=== PATIENT | male | born 2000 | race Caucasian/White ===

== ENCOUNTER 2020-08-12 14:46 | Observation (INO) ==
[~2020-08-12 14:46] MED LIST: oxyCODONE HCL IR 5 MG TAB (IMMEDIATE RELEASE) PO SCH
[2020-08-12] MEDS ORDERED: SODIUM CHLORIDE 0.9% 1000ML 1,000 ML IV ONE (15:50)
[2020-08-12 16:06] LABS: Appearance Urine Clear (Clear); Bacteria Urine Automated Negative (Negative); Bilirubin Urine Negative (Negative); Blood Urine Negative (Negative); Color Urine Dark Yellow; Epithelial Cell Urine Auto 20-30 /lpf (0-5); Glucose Urine UA Negative (Negative); Ketones Urine Trace (Negative); Leukocyte Esterase Urine Trace (Negative); Nitrite Urine Negative (Negative); Protein Urine 1+ (Negative); RBC Urine Automated 0-4 /hpf (0-4); Specific Gravity Urine 1.037 (1.000-1.030); Urobilinogen Urine Negative (Negative)
[2020-08-12 16:07] LABS: Basophils # (auto) 0.02 K/uL (0-0.2); Basophils % (auto) 0.1 %; Eosinophils # (auto) 0.08 K/uL (0-0.5); Eosinophils % (auto) 0.6 %; Hematocrit (blood only) 42.8 % (42-52); Immature Granulocytes # (auto) 0.03 K/uL (0.00-0.02); Immature Granulocytes % (auto) 0.2 %; Lymphocytes # (auto) 2.13 K/uL (1.2-3.4); Lymphocytes % (auto) 15.2 %; Mean Corpuscular Hemoglobin 31.7 pg (25-34); Mean Corpuscular Volume 90.5 fL (80-100); Monocytes % (auto) 7.8 %; Neutrophils # (auto) 10.67 K/uL (1.4-6.5); Neutrophils % (auto) 76.1 %; Platelet Count 305 K/uL (130-400); RDW Coefficient of Variation 12.3 % (11.5-14.5); Red Blood Count 4.73 M/uL (4.7-6.1); White Blood Count 14.03 K/uL (4.8-10.8)
--- NOTE | 2020-08-12 16:20 | Emergency Department Note ---
History of Present Illness General Chief complaint: Abdominal Pain Stated complaint: PAIN IN UPPER CENTER STOMACH Time Seen by Provider: 08/12/20 15:03 History of Present Illness Maximum Pain Intensity: 2 20-year-old male who presents to the emergency department for evaluation of epigastric pain since last evening. The patient reports that he did try to take some anti-gas medication before going to bed, which did not help with his discomfort that he describes as a "squeezing and bruised sensation". The patient did not notice any pain radiating into the chest or back. The pain is worsened when laying on his stomach. The patient reports that he has also noticed some new pain in the right lower quadrant that started this afternoon. He denies any worsening pain with ambulation, deep breathing, bowel movements or urination. The patient admits that he did drink a sixpack of IPA beer the night before. He denies history of GERD, gastritis, pancreatitis or hepatitis. He also denies prior history of abdominal surgeries. The patient does drink a cup of coffee daily, but was unable to do so this morning because of his discomfort. He has not been able to tolerate any significant fluids. He denies any nausea, fever or other recent upper respiratory infections. He currently rates his discomfort a 2 out of 10. Home Medications Medication Instructions Recorded Confirmed Type acetaminophen 650 mg PO Q6H PRN #30 cap 08/12/20 Rx bupropion HCl [Wellbutrin SR] 0 mg PO DAILY 08/12/20 08/12/20 History ibuprofen 400 mg PO Q6H PRN 08/12/20 08/12/20 History oxycodone 5 mg PO Q6H PRN #5 cap 08/12/20 Rx simethicone 160 mg PO BID PRN 08/12/20 08/12/20 History Allergies Allergy/AdvReac Type Severity Reaction Status Date / Time No Known Allergies Allergy Verified 08/12/20 17:48 Past Med/Surg History Medical History No significant past medical history Surgical History No significant past surgical history Social History Smoking Status: Current every day smoker Tobacco Type: E-cigarettes / Vaping Hx Alcohol Use: Yes Alcohol type: beer Preferred Language: Danish 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 Ability: Effective 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 Beliefs That Will Affect Care: None marital status: Single Current Living Situation: Other Current Living Situation Comment: Student current occupational status: student Feels Safe at Home: Yes Assistive Devices: None Review of Systems 10 system review was performed and was negative except for pertinent positives and negatives as indicated in history of present illness Physical Exam Vital Signs Vital Signs - 24 hr 08/12/20 14:51 08/12/20 16:47 08/12/20 18:00 Temperature 36.5 C Temperature Source Oral Pulse Rate 80 Pulse Rate [Apical] Pulse Rate [Finger] 78 77 Pulse Rhythm [Apical] Pulse Rhythm [Finger] Regular Regular Pulse Strength [Finger] Normal Respiratory Rate 20 18 20 Respiratory Effort / Characteristics Non-Labored Spontaneous Non-Labored Spontaneous Respiratory Depth Normal Normal Respiratory Pattern Regular Regular Blood Pressure 138/83 Blood Pressure [Left Arm] 129/75 119/70 Blood Pressure Mean 101 Blood Pressure Mean [Left Arm] 93 86 Blood Pressure Position [Left Arm] Pulse Oximetry 95 98 98 Oxygen Delivery Method Room Air Room Air Room Air Sepsis Recent Fever Within 48 Hours No Sepsis New/Unexplained Change in Mental Status No Sepsis Action Taken by Nursing No Action Required 08/12/20 19:22 08/12/20 19:32 08/12/20 21:11 Temperature 37 C 36.5 C Temperature Source Oral Temporal Artery Scan Pulse Rate Pulse Rate [Apical] 64 Pulse Rate [Finger] 61 61 Pulse Rhythm [Apical] Regular Pulse Rhythm [Finger] Pulse Strength [Finger] Normal Respiratory Rate 18 18 15 Respiratory Effort / Characteristics Non-Labored Spontaneous Non-Labored Spontaneous Non-Labored Spontaneous Respiratory Depth Normal Normal Normal Respiratory Pattern Regular Regular Blood Pressure Blood Pressure [Left Arm] 146/78 H 138/74 133/67 Blood Pressure Mean Blood Pressure Mean [Left Arm] 100 95 89 Blood Pressure Position [Left Arm] Semi-fowlers Lying Pulse Oximetry 99 96 93 Oxygen Delivery Method Room Air Room Air Room Air Sepsis Recent Fever Within 48 Hours Sepsis New/Unexplained Change in Mental Status Sepsis Action Taken by Nursing CONSTITUTIONAL: Healthy and well nourished. Patient does not appear in any acute distress. HEENT: Normocephalic, atraumatic. Pupils equal, round and reactive. No scleral icterus or conjunctival injection/pallor. Mucous membranes are dry without posterior pharyngeal erythema, tonsillar hypertrophy or exudates. NECK: Full active range of motion without discomfort. LYMPHATICS: No cervical chain adenopathy. RESPIRATORY: Clear to auscultation bilaterally with no wheezing, crackles, rhonchi or stridor. CARDIOVASCULAR: Regular rate and rhythm with no murmurs, rubs or gallops. GASTROINTESTINAL: Bowel sounds present in all quadrants. Patient has mild e pigastric tenderness to palpation, along with mild right lower quadrant tenderness to palpation with a positive Rovsing sign. Negative psoas/obturator sign and negative heel tap. Negative CVA tenderness. No abdominal rigidity, guarding or rebound. MUSCULOSKELETAL: Full range of motion of all joints without discomfort. INTEGUMENTARY: No rash or other significant dermatologic conditions noted. HEMATOLOGIC: No ecchymosis or petechiae. PSYCHIATRIC: Positive affect. NEUROLOGIC: No focal neurologic deficits noted. Course Course Patient history and physical exam were performed. Nurses notes were reviewed. Vital signs were reviewed and were normal. IV access was established, and labs were drawn. The patient was hydrated with a liter of normal saline. He refused any analgesics or antiemetics. Review of labs shows a moderate leukocytosis with left shift and bandemia. CT with IV contrast of the abdomen and pelvis confirms an uncomplicated appendicitis. Findings were discussed with Dr. Cordoba, general surgeon on-call, who came to the emergency department for further evaluation and to discuss surgical man agement. I did place an order for Mefoxin 2 g IV infusion while in the emergency department. The patient refused any additional analgesics or antiemetics prior to transfer of care to the surgical team. Please see Dr. Cordoba's dictation for further treatment and final disposition. Administered Medications Discontinued Medications Bupivacaine HCl/Epinephrine Bitart (Bupivacaine/Epinephrine 0.5% Mpf 1:200,000 30 Ml Vial) Confirm Administered Dose 30 ml .ROUTE .STK-MED ONE Stop: 08/12/20 19:34 Last Admin: 08/12/20 20:51 Dose: 30 ml Documented by: [id number] Sodium Chloride (Nss 1000ml) 1,000 mls @ 999 mls/hr IV .Q1H1M ONE Stop: 08/12/20 16:50 Last Infusion: 08/12/20 17:01 Dose: 0 mls/hr Documented by: [id number] Admin: 08/12/20 15:57 Dose: 999 mls/hr Documented by: [id number] Cefoxitin Sodium (Mefoxin) 2,000 mg in 60 mls @ 100 mls/hr IV NOW STA Stop: 08/12/20 18:40 Last Infusion: 08/12/20 19:22 Dose: 0 mls/hr Documented by: [id number] Admin: 08/12/20 18:24 Dose: 100 mls/hr Documented by: [id number] Lactated Ringer's (Lr) 1,000 mls @ 75 mls/hr IV .[id number] AILEEN Stop: 09/11/20 22:10 Last Admin: 08/12/20 22:29 Dose: 75 mls/hr Documented by: [id number] Ioversol (Ioversol 100ml) 92 ml IV ONCE ONE Stop: 08/12/20 17:21 Last Admin: 08/12/20 17:20 Dose: 92 ml Documented by: [id number] Oxycodone HCl (Oxycodone Hcl Ir 5 Mg Tab (Immediate Release)) 5 mg PO Q6H PRN PRN Reason: Pain Stop: 08/26/20 22:10 Last Admin: 08/12/20 22:28 Dose: 5 mg Documented by: [id number] Medical Decision Making Medical Records Attestation: I reviewed the patient's medical records. Home Medications Current Medication List: was personally reviewed by me Laboratory Data Attestation: I reviewed the patient's lab results. Result diagrams: 08/12/20 15:56 08/12/20 15:56 Lab Results 08/12/20 08/12/20 08/12/20 Range/Units 15:55 15:56 15:56 WBC 14.03 H (4.8-10.8) K/uL RBC 4.73 (4.7-6.1) M/uL Hgb 15.0 (14.0-18.0) g/dL Hct 42.8 (42-52) % MCV 90.5 (80-100) fL MCH 31.7 (25-34) pg MCHC 35.0 (32-36) g/dL RDW Std Deviation 41.0 (36.4-46.3) fL RDW Coeff of Taisha 12.3 (11.5-14.5) % Plt Count 305 (130-400) K/uL MPV 10.0 (7.4-10.4) fL Immature Gran % (Auto) 0.2 % Neut % (Auto) 76.1 % Lymph % (Auto) 15.2 % Day % (Auto) 7.8 % Eos % (Auto) 0.6 % Baso % (Auto) 0.1 % Neut # (Auto) 10.67 H (1.4-6.5) K/uL Lymph # (Auto) 2.13 (1.2-3.4) K/uL Day # (Auto) 1.10 H (0.11-0.59) K/uL Eos # (Auto) 0.08 (0-0.5) K/uL Baso # (Auto) 0.02 (0-0.2) K/uL Immature Gran # (Auto) 0.03 H (0.00-0.02) K/uL Sodium 140 (136-145) mmol/L Potassium 3.9 (3.5-5.1) mmol/L Chloride 108 H (98-107) mmol/L Carbon Dioxide 25 (21-32) mmol/L Anion Gap 7.0 (3-11) BUN 13 (7-18) mg/dl Creatinine 1.07 (0.6-1.4) mg/dl Est Cr Clr Drug Dosing 124.5 ml/min Est GFR ( Amer) 115.2 Est GFR (Non-Af Amer) 99.4 BUN/Creatinine Ratio 11.8 (10-20) Glucose 85 (70-99) mg/dl Calcium 9.3 (8.5-10.1) mg/dl Total Bilirubin 1.0 (0.2-1) mg/dl AST 14 L (15-37) U/L ALT 25 (12-78) U/L Alkaline Phosphatase 78 (45-117) U/L Total Protein 7.8 (6.4-8.2) gm/dl Albumin 4.2 (3.4-5.0) gm/dl Globulin 3.6 (2.5-4.0) gm/dl Albumin/Globulin Ratio 1.2 (0.9-2) Urine Color Dark Yellow Urine Appearance Clear (Clear) Urine pH 7.0 (4.5-7.5) Ur Specific [place] 1.037 H (1.000-1.030) Urine Protein 1+ H (Negative) Urine Glucose (UA) Negative (Negative) Urine Ketones Trace H (Negative) Urine Blood Negative (Negative) Urine Nitrite Negative (Negative) Urine Bilirubin Negative (Negative) Urine Urobilinogen Negative (Negative) Ur Leukocyte Esterase Trace H (Negative) Urine WBC (Auto) 5-10 H (0-5) /hpf Urine RBC (Auto) 0-4 (0-4) /hpf U Hyaline Cast (Auto) 5-10 H (0-5) /lpf U Epithel Cells (Auto) 20-30 H (0-5) /lpf Urine Bacteria (Auto) Negative (Negative) COVID-19 Eval Order SARS-CoV-2, RNA, NAAT (NEGATIVE) 08/12/20 08/12/20 Range/Units 17:45 17:45 WBC (4.8-10.8) K/uL RBC (4.7-6.1) M/uL Hgb (14.0-18.0) g/dL Hct (42-52) % MCV (80-100) fL MCH (25-34) pg MCHC (32-36) g/dL RDW Std Deviation (36.4-46.3) fL RDW Coeff of Taisha (11.5-14.5) % Plt Count (130-400) K/uL MPV (7.4-10.4) fL Immature Gran % (Auto) % Neut % (Auto) % Lymph % (Auto) % Day % (Auto) % Eos % (Auto) % Baso % (Auto) % Neut # (Auto) (1.4-6.5) K/uL Lymph # (Auto) (1.2-3.4) K/uL Day # (Auto) (0.11-0.59) K/uL Eos # (Auto) (0-0.5) K/uL Baso # (Auto) (0-0.2) K/uL Immature Gran # (Auto) (0.00-0.02) K/uL Sodium (136-145) mmol/L Potassium (3.5-5.1) mmol/L Chloride (98-107) mmol/L Carbon Dioxide (21-32) mmol/L Anion Gap (3-11) BUN (7-18) mg/dl Creatinine (0.6-1.4) mg/dl Est Cr Clr Drug Dosing ml/min Est GFR ( Amer) Est GFR (Non-Af Amer) BUN/Creatinine Ratio (10-20) Glucose (70-99) mg/dl Calcium (8.5-10.1) mg/dl Total Bilirubin (0.2-1) mg/dl AST (15-37) U/L ALT (12-78) U/L Alkaline Phosphatase (45-117) U/L Total Protein (6.4-8.2) gm/dl Albumin (3.4-5.0) gm/dl Globulin (2.5-4.0) gm/dl Albumin/Globulin Ratio (0.9-2) Urine Color Urine Appearance (Clear) Urine pH (4.5-7.5) Ur Specific [place] (1.000-1.030) Urine Protein (Negative) Urine Glucose (UA) (Negative) Urine Ketones (Negative) Urine Blood (Negative) Urine Nitrite (Negative) Urine Bilirubin (Negative) Urine Urobilinogen (Negative) Ur Leukocyte Esterase (Negative) Urine WBC (Auto) (0-5) /hpf Urine RBC (Auto) (0-4) /hpf U Hyaline Cast (Auto) (0-5) /lpf U Epithel Cells (Auto) (0-5) /lpf Urine Bacteria (Auto) (Negative) COVID-19 Eval Order Covid19 [facility]Now [facility] SARS-CoV-2, RNA, NAAT NEGATIVE (NEGATIVE) Imaging Data Attestation: I personally reviewed and interpreted this imaging study as follows: My Impression: My interpretation of a CT with IV contrast of the abdomen and pelvis confirms an uncomplicated appendicitis without evidence for perforation. No further bowel obstruction, gallstones or evidence of pancreatitis noted. Radiologist report was also reviewed. Radiologist's Impression: ABDOMEN AND PELVIS CT WITH IV CONTRAST CT DOSE: 344.31 mGy.cm HISTORY: Right lower quadrant pain. TECHNIQUE: Multiaxial CT images of the abdomen and pelvis were performed following the use of intravenous contrast. A dose lowering technique was utilized adhering to the principles of ALARA. COMPARISON STUDY: None. FINDINGS: The lung bases are clear. No pneumoperitoneum. No pneumatosis. No fractures within the visualized osseous structures. The liver, gallbladder, pancreas, spleen, adrenal glands, and kidneys are unremarkable. No hydronephrosis. No retroperitoneal lymphadenopathy. Normal caliber abdominal aorta. The main portal vein is patent. Mild ileocolic lymphadenopathy. This is likely reactive. Trace pelvic free fluid. This is also likely reactive. The bladder is unremarkable. No evidence for bowel obstruction. There is a fluid- filled and distended appendix demonstrating a thickened wall and periappendiceal fat stranding. Therefore, this is consistent with acute appendicitis. The appendix measures up to 14 mm in diameter. No perforation or abscess identified at this time. IMPRESSION: Acute appendicitis. Blood Pressure Blood Pressure Findings: Normal blood pressure MDM Narrative Patient presents to emergency department with complaint of epigastric pain, but did have right lower quadrant tenderness to palpation with a positive Rovsing sign. For this reason, I did elect to perform CT with IV contrast of the abdomen and pelvis, showing evidence for acute appendicitis. The patient did admit to drinking alcohol the night before his symptoms developed, therefore alcoholic gastritis is also certainly a possibility. Imaging and laboratory studies are not suggestive of acute pancreatitis, cholecystitis or hepatitis. CT also does not show evidence for bowel obstruction, diverticulitis, abdominal free air or other acute findings. Impression & Plan Acute appendicitis Discharge Plan Visit Data Chief Complaint: Abdominal Pain Stated Complaint: PAIN IN UPPER CENTER STOMACH ED Provider: Kyrie Verdin ED Midlevel Provider: Jama Larkin Discharge Problem: Acute appendicitis Patient Disposition: Still a Patient Discharge Instructions Interventions: ED Discharge Assessment Last Done: 08/12/20 19:30
[2020-08-12 16:45] LABS: Albumin Level 4.2 gm/dl (3.4-5.0); BUN Creatinine Ratio 11.8 (10-20); Calcium 9.3 mg/dl (8.5-10.1); Creatinine Clr Calc Pharmacy 124.5 ml/min; Est GFR (African American) 115.2; Est GFR (Non-African American) 99.4; Potassium 3.9 mmol/L (3.5-5.1)
[2020-08-12 16:47] LABS: Albumin Globulin Ratio 1.2 (0.9-2); Globulin 3.6 gm/dl (2.5-4.0); Total Protein 7.8 gm/dl (6.4-8.2)
[2020-08-12] MEDS ORDERED: OPTIRAY 320 100ml IV ONE (17:20)
--- NOTE | 2020-08-12 17:32 | CT Scan Report ---
ABDOMEN AND PELVIS CT WITH IV CONTRAST CT DOSE: 344.31 mGy.cm HISTORY: Right lower quadrant pain. TECHNIQUE: Multiaxial CT images of the abdomen and pelvis were performed following the use of intrave nous contrast. A dose lowering technique was utilized adhering to the principles of ALARA. COMPARISON STUDY: None. FINDINGS: The lung bases are clear. No pneumoperitoneum. No pneumatosis. No fractures within the visu alized osseous structures. The liver, gallbladder, pancreas, spleen, adrenal glands, and kidneys are unremarkable. No hydronephrosis. No retroperitoneal lymphadenopathy. Normal caliber abdominal aorta. The main portal vein is patent. Mild ileocolic lymphadenopathy. This is likely reactive. Trace pelvic free fluid. This is also likely reactive. The bladder is unremarkable. No evidence for bowel obstruc tion. There is a fluid-filled and distended appendix demonstrating a thickened wall and periappendice al fat stranding. Therefore, this is consistent with acute appendicitis. The appendix measures up to 14 mm in diameter. No perforation or abscess identified at this time. IMPRESSION: Acute appendicitis. ACT 112: Negative or not required by law. Electronically signed by: Demond Diaz M.D. 08/12/2020 5:30 PM
[2020-08-12] MEDS ORDERED: cefOXitin 2,000 MG/60 ML BAG IV STA (18:05)
--- NOTE | 2020-08-12 19:01 | Anesthesiology Consultation ---
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 Height/Weight Height: 6 ft 1 in Weight: 84 kg Allergies Allergy/AdvReac Type Severity Reaction Status Date / Time No Known Allergies Allergy Verified 08/12/20 17:48 Medications Home Medications Medication Instructions Recorded Confirmed Last Taken bupropion HCl [Wellbutrin SR] 0 mg PO DAILY 08/12/20 08/12/20 08/12/20 09:00 ibuprofen 400 mg PO Q6H PRN 08/12/20 08/12/20 08/12/20 simethicone [Gas-X] 160 mg PO BID PRN 08/12/20 08/12/20 08/12/20 Past Medical History Medical History No significant past medical history Past Surgical History Surgical History No significant past surgical history Social History Smoking Status: Current every day smoker Physical Exam Vital Signs Last Vital Signs Temp 97.7 F 08/12/20 14:51 Pulse 77 08/12/20 18:00 Resp 20 08/12/20 18:00 BP 119/70 08/12/20 18:00 Pulse Ox 98 08/12/20 18:00 Testing Laboratory Results 08/12/20 15:56 08/12/20 15:56 Urine Color Dark Yellow 08/12/20 15:55 Urine Appearance Clear (Clear) 08/12/20 15:55 Urine pH 7.0 (4.5-7.5) 08/12/20 15:55 Ur Specific [place] 1.037 (1.000-1.030) H 08/12/20 15:55 Urine Protein 1+ (Negative) H 08/12/20 15:55 Urine Glucose (UA) Negative (Negative) 08/12/20 15:55 Urine Ketones Trace (Negative) H 08/12/20 15:55 Urine Nitrite Negative (Negative) 08/12/20 15:55 Ur Leukocyte Esterase Trace (Negative) H 08/12/20 15:55 Urine WBC (Auto) 5-10 /hpf (0-5) H 08/12/20 15:55 Urine RBC (Auto) 0-4 /hpf (0-4) 08/12/20 15:55 U Hyaline Cast (Auto) 5-10 /lpf (0-5) H 08/12/20 15:55 U Epithel Cells (Auto) 20-30 /lpf (0-5) H 08/12/20 15:55 Urine Bacteria (Auto) Negative (Negative) 08/12/20 15:55
[2020-08-12] MEDS ORDERED: fentaNYL citrate 100 MCG/2 ML VIAL ONE (19:04)
--- NOTE | 2020-08-12 19:16 | History & Physical Report ---
Date of Service August 12, 2020 Assessment & Plan (1) Acute appendicitis: -CT images and results reviewed -Clinical and CT evidence of acute appendicitis -Will plan on laparoscopic appendectomy, possible open tonight -Consent obtained, risks discussed including bleeding, infection, leak, abscess History of Present Illness Chief Complaint: Abdominal pain Primary Care Provider: NO PCP This is a 20 yo male with no PMH who presents to the ER with abdominal pain. He states about 1 day ago he began having periumbilical abdominal pain that ev entually turned sharp and moved to RLQ. No radiation of pain. No worsening or relieving factors. No fevers or chills. +nausea, no emesis. +Anorexia. Allergies Allergy/AdvReac Type Severity Reaction Status Date / Time No Known Allergies Allergy Verified 08/12/20 17:48 Home Medications Medication Instructions Recorded Confirmed Type bupropion HCl [Wellbutrin SR] 0 mg PO DAILY 08/12/20 08/12/20 History ibuprofen 400 mg PO Q6H PRN 08/12/20 08/12/20 History simethicone [Gas-X] 160 mg PO BID PRN 08/12/20 08/12/20 History Past Med/Surg History Medical History No significant past medical history Surgical History No significant past surgical history Social History Smoking Status: Current every day smoker Tobacco Type: E-cigarettes / Vaping marital status: Single 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 occupational status: student Feels Safe at Home: Yes Review of Systems Constitutional: no fever and no chills Eyes: no blind spots and no worsening vision Ear, Nose, Mouth, Throat: no ear pain and no hearing loss Respiratory: no cough and no dyspnea Cardiovascular: no chest pain and no dyspnea on exertion Gastrointestinal: + abdominal pain and + nausea; no vomiting, no constipation and no diarrhea/loose stools Genitourinary: no dysuria Musculoskeletal: no back pain and no neck pain Integumentary: no acne and no rash Neurologic: no falls, no numbness and no headache(s) Psychiatric: no behavioral changes and no depression Endocrine: no fatigue Hematologic / Lymphatic: no easy bleeding and no easy bruising Physical Exam Constitutional: WD/WN, vitals as above Eyes: PERRL, conjunctivae normal, anicteric sclerae ENMT: external ear and nose normal, oropharynx normal Neck: trachea midline, no thyromegaly Respiratory: normal respiratory effort, lungs clear to auscultation Cardiovascular: RRR, no murmur, no edema Gastrointestinal (Abdomen): Inspection/Auscultation: abdomen normal to inspection Percussion/Palpation: + abdomen tender (RLQ) and abdomen soft; no guarding and abdomen not rigid +McBurney's sign Musculoskeletal: no cyanosis or clubbing, extremities motor strength 5/5 Skin: no rashes, warm and dry Neurologic: PERRL, EOMI, accommodation nl, no face palsy, no dysarthria Psychiatric: A+Ox3, euthymic affect Lymphatic: no inguinal lymphadenopathy Results & Data Results & Data ([facility]) Vital Signs (Past 12 Hours) Vital Signs Temp Pulse Pulse Resp BP BP Pulse Ox 08/12/20 18:00 77 20 119/70 98 08/12/20 16:47 78 18 129/75 98 08/12/20 14:51 36.5 C 80 20 138/[address] A/P 08/12/20 Acute appendicitis PG Care Time/CCT Total # of Minutes Spent Total Time Spent with Patient: Total time spent is greater than 50% in coordination of care (as documented) at patient's floor/unit and/or counseling patient: Coding Level of Care Code 68452 OBS Care - Level 2 Diagnoses Acute appendicitis K35.30 Acute appendicitis type: with localized peritonitis Appendicitis gangrene presence: unspecified whether gangrene present Appendicitis perforation presence: unspecified whether perforation present Appendicitis abscess presence: without abscess (1) Acute appendicitis Acute appendicitis type: with localized peritonitis Appendicitis gangrene presence: unspecified whether gangrene present Appendicitis perforation presence: unspecified whether perforation present Appendicitis abscess presence: without abscess Qualified Code(s): K35.30 - Acute appendicitis with localized peritonitis, without perforation or gangrene
[2020-08-12] MEDS ORDERED: BUPIVACAINE/EPINEPHRINE 0.5% MPF 1:200,000 30 ML VIAL ONE (19:33)
[2020-08-12] MEDS ORDERED: ONDANSETRON INJ 2 MG/ML 2 ML VIAL IV PRN ×2 (19:39→22:11)
[2020-08-12] MEDS ORDERED: ePHEDrine sulfate 50 MG/ML AMP IV PRN (19:39)
[2020-08-12] MEDS ORDERED: fentaNYL citrate 100 MCG/2 ML VIAL IV PRN (19:39)
[2020-08-12] MEDS ORDERED: ATROPINE SULFATE 0.1 MG/ML 10ML SYR IV PRN (19:39)
[2020-08-12] MEDS ORDERED: PROPOFOL IV EMULSION 10 MG/ML 20 ML VIAL IV ONE (20:08)
[2020-08-12] MEDS ORDERED: DEXAMETHASONE SOD INJ 4 MG/ML VIAL ONE (20:08)
[2020-08-12] MEDS ORDERED: LIDOCAINE HCL 2% 2 ML VIAL/AMP(20MG/ML) INFIL ONE (20:08)
[2020-08-12] MEDS ORDERED: SUCCINYLCHOLINE 100MG/5ML SYR IV ONE (20:08)
[2020-08-12] MEDS ORDERED: ROCURONIUM BROMIDE 10 MG/ML 5 ML VIAL IV ONE (20:08)
[2020-08-12] MEDS ORDERED: ONDANSETRON INJ 2 MG/ML 2 ML VIAL ONE (20:08)
[2020-08-12] MEDS ORDERED: NEOSTIGMINE METHYLSULFATE 5 MG/5 ML SYR ONE (20:48)
[2020-08-12] MEDS ORDERED: GLYCOPYRROLATE 0.2 MG/ML VIAL ONE (20:48)
--- NOTE | 2020-08-12 20:56 | Post Operative Brief Note ---
PG Immediate Post Op with CF Date of Surgery August 12, 2020 Pre & Post Diagnosis Operation Date: 08/12/20 19:30 Pre-Op Diagnosis: Acute Appendicitis Post-Op Diagnosis: Acute Appendicitis without perforation I identified the patient and participated in the time-out.: Yes Procedure Operation Date: 08/12/20 19:30 Actual Procedures p Laparoscopic Appendectomy(Not Applicable) - Joshua Cordoba DO Surgeon Joshua Cordoba DO Grommet Man Cristofer Mcrae PA-C Estimated Blood Loss 5 Findings See Below Acutely inflamed, edematous appendix without perforation Fluids 1000mL crystalloid Specimens Specimen Description: A. Appendix Drains [place] Catheter (16french inserted without difficulty for procedure. To be removed at end of case) Anesthesia Type General Complications none Disposition Disposition: Recovery Room
--- NOTE | 2020-08-12 20:58 | Operative Report ---
PG Post Operative Report Pre & Post Diagnosis Operation Date: 08/12/20 19:30 Pre-Op Diagnosis: Acute Appendicitis Post-Op Diagnosis: Acute Appendicitis without perforation I identified the patient and participated in the time-out.: Yes Procedure Operation Date: 08/12/20 19:30 Actual Procedures p Laparoscopic Appendectomy(Not Applicable) - Joshua Cordoba DO Surgeon Joshua Cordoba DO Log Cooker Cristofer Mcrae PA-C Estimated Blood Loss 5 Findings See Below Acutely inflamed, edematous appendix without perforation Fluids 1000mL crystalloid Specimens Appendix to pathology Drains None Anesthesia Type General Complications none Disposition Disposition: Recovery Room Indications 20 yo male with acute appendicitis Description of Procedure The patient was brought to the OR and placed in the supine position and SCD's placed. At this time he underwent general endotracheal anesthesia without incident. At this time a Holbrook catheter was placed under sterile conditions. His abdomen was prepped and draped in the usual sterile fashion. He was given a ppropriate pre-operative antibiotics. A timeout was called, the procedure was verified as Laparoscopic appendectomy, possible open. Surgical, anesthesia and nursing teams agreed and the procedure was begun. After injection of 0.25% Marcaine with epinephrine, a supraumbilical incision was made using a #11 blade scalpel and carried down to the fascia with a hemostat. The abdomen was then elevated with towel clamps and entered using the Veress needle confirming position using the saline drop test. Pneumoperitoneum was established and 5mm trocar was placed. Laparoscope was introduced. No injury was seen from our entrance to the abdomen. At this time a 5mm suprapubic port and 12mm LLQ port were placed under direct visualization. The patient was placed in Trendelenburg and rotated to the left. At this time the appendix was visualized and the tip was freed and elevated toward the abdominal wall. The appendix appeared inflamed, dilated and edematous. A window was created in the mesoappendix at the base of the appendix. A 45mm purple load stapler was then fired across the base of the appendix which appeared healthy. The mesoappendix was then taken using Harmonic device. The appendix was then placed in an Endocatch bag and removed through the LLQ port site. Staple line was inspected and was intact. Hemostasis was complete. A small amount of purulent fluid was suctioned out of the RLQ and pelvis. At this point the omentum was placed over the staple line. The 12 mm port was then closed at the fascial level using a 0 Vicryl suture using the suture passer. All ports were removed under direct visualization and no bleeding was noted. The abdomen was desufflated and the skin was closed using 4-0 Monocryl in a subcuticular fashion. Sterile dressings were applied. Holbrook catheter was removed. The patient was then awakened from anesthesia having remained stable throughout the entire case and transported to PACU. All needle and sponge counts were correct x 2. The physician's behavioral health assistant was present and scrubbed for the entire case. He was necessary for positioning, prepping and draping the patient, retraction and exposure, driving the laparoscope, closure of the incisions and placement of the dressings. I attest to the content of the Intraoperative Record and any orders documented therein. Any exceptions are noted below.
[2020-08-12] MEDS ORDERED: oxyCODONE IR HOME PACK PO ONE (21:16)
--- NOTE | 2020-08-12 21:50 | Anesthesiology Progress Note ---
Date of Service August 12, 2020 Anesthesia Post Procedure Vital Signs Vital Signs: Temp Pulse Pulse Pulse Resp BP BP 08/12/20 21:40 97.9 F 63 12 115/58 L 08/12/20 21:30 59 L 13 136/59 L 08/12/20 21:20 57 L 14 128/66 08/12/20 21:11 97.7 F 64 15 133/67 08/12/20 19:32 98.6 F 61 18 138/74 08/12/20 19:22 61 18 146/78 H 08/12/20 18:00 77 20 119/70 08/12/20 16:47 78 18 129/75 08/12/20 14:51 97.7 F 80 20 138/83 Pulse Ox 08/12/20 21:40 98 08/12/20 21:30 95 08/12/20 21:20 95 08/12/20 21:11 93 08/12/20 19:32 96 08/12/20 19:22 99 08/12/20 18:00 98 08/12/20 16:47 98 08/12/20 14:51 95 Pain Intensity Right Lower Abdomen: Pain Intensity: 0 Transfer of Care Handoff Completed per policy Notes Mental Status: alert / awake / arousable and participated in evaluation Patient Amnestic to Procedure: Yes Nausea / Vomiting: adequately controlled Pain: adequately controlled Airway Patency, RR, SpO2: stable & adequate BP & HR: stable & adequate Hydration State: stable & adequate Anesthetic Complications: no major complications apparent and Pt Satisfied with anesthetic care
[2020-08-12] MEDS ORDERED: LACTATED RINGER'S 1,000 ML IV SCH (22:11)
[2020-08-12] MEDS ORDERED: ACETAMINOPHEN 1,000 MG/100 ML VIAL IV PRN (22:11)
[2020-08-12] MEDS ORDERED: oxyCODONE HCL IR 5 MG TAB (IMMEDIATE RELEASE) PO PRN (22:11)
[2020-08-12] MEDS ORDERED: MoRPHine SULFATE 2 MG/ML CARP IV PRN (22:11)
--- NOTE | 2020-08-14 12:56 | Discharge Summary ---
Date of Service August 14, 2020 Admission HPI Per Admitting Provider This is a 20 yo male with no PMH who presents to the ER with abdominal pain. He states about 1 day ago he began having periumbilical abdominal pain that eventually turned sharp and moved to RLQ. No radiation of pain. No worsening or relieving factors. No fevers or chills. +nausea, no emesis. +Anorexia. Principal Diagnosis Acute appendicitis Discharge Exam Constitutional WD/WN, vitals as above Gastrointestinal (Abdomen) Percussion/Palpation: + abdomen tender (appropriately) and abdomen soft Discharge Data Allergies Allergy/AdvReac Type Severity Reaction Status Date / Time No Known Allergies Allergy Verified 08/12/20 17:48 Consultations 08/12/20 17:40 ED Decision to Admit Stat Procedures Performed Operation Date: 08/12/20 19:30 Actual Procedures p Laparoscopic Appendectomy(Not Applicable) - Joshua Cordoba DO Ordered Studies 08/12/20 15:50 CT abd pelvis IV con only Stat Hospital Course (1) Acute appendicitis: Patient was admitted with acute appendicitis and underwent laparoscopic appendectomy which he tolerated well. Post operatively he was tolerating a di et, afebrile, ambulating without difficulty and stable for discharge home. Total Time Total Time Spent Total Time Spent (In Minutes): 20 Discharge Plan Discharge Items Patient Disposition: Home - Self-Care Reason For Visit: APPY Discharge Diagnosis: Appendicitis Activity: As commented below Activity Comment: Walk daily Lifting: No more than 10 pounds Bathing: May shower/bathe in 3 days Sexual Activity: Wait until after follow-up appointment Exercise/Sports: Wait until after follow-up appointment Non-emergency contact: Surgeon Call non-emergency contact if: you have any medication questions Follow-up/Referrals: Joshua Cordoba DO [Physician] - (Call office for appointment in 1-2 weeks.) PCP,NO [Primary Care Provider] - Diet: Regular Addtl Attending Provider Instructions: Call office with questions Pending Studies at Discharge: No Stand-Alone Forms: [facility], Virtual Emergency Department, Important Visit Information Medications and DC Order Prescriptions: New acetaminophen 325 mg capsule 650 mg PO Q6H PRN (Reason: fever or pain) Qty: 30 RF: 0 oxycodone 5 mg capsule 5 mg PO Q6H PRN (Reason: pain) Qty: 5 RF: 0 Continued bupropion HCl [Wellbutrin SR] 150 mg Tablet Sustained-Release 12 Hr 0 mg PO DAILY RF: 0 ibuprofen 200 mg Tablet 400 mg PO Q6H PRN (Reason: Pain) RF: 0 simethicone 80 mg Tablet,Chewable 160 mg PO BID PRN (Reason: gas/bloating) RF: 0 Discharge Orders: Discharge Order (Routine); Ordered 08/12/20 Ordered By: Cristofer Mcrae Admission Data Admit Date/Time: 08/12/20 21:12 Attending Provider: Joshua Cordoba Admit Provider: Joshua Cordoba Primary Care Provider: PCP,NO Other Providers: Joshua Cordoba Other Interventions: Discharge Summary Assessment (RN) Last Done: 08/12/20 22:54 Coding Level of Care Code D/C Day Management <30 mins Diagnoses Acute appendicitis K35.80
== END 2020-08-13 00:09 | disposition home or self-care (01) ==
LOC: ED 14:46 → ASU 19:30 → 3N 19:30